=== PATIENT | male | born 1975 | race African-American/Black ===

== ENCOUNTER 2016-06-20 12:07 | Outpatient (CLI) | payer OTHER | END 2016-06-20 12:08 | disposition home or self-care (01) | DX: M47.816 Spondylosis without myelopathy or radiculopathy, lumbar region (principal); M47.812 Spondylosis without myelopathy or radiculopathy, cervical region; M50.31 Other cervical disc degeneration, high cervical region; M43.12 Spondylolisthesis, cervical region; M51.37 Other intervertebral disc degeneration, lumbosacral region; M43.17 Spondylolisthesis, lumbosacral region; M22.42 Chondromalacia patellae, left knee; M71.22 Synovial cyst of popliteal space [Baker], left knee ==

== ENCOUNTER 2016-06-20 12:13 | Outpatient (CLI) | payer OTHER | END 2016-06-20 12:14 | disposition home or self-care (01) | DX: M22.42 Chondromalacia patellae, left knee (principal); M71.22 Synovial cyst of popliteal space [Baker], left knee ==

== ENCOUNTER 2016-11-28 13:30 | Outpatient (CLI) | payer OTHER ==
[2016-11-28 19:14] LABS: ALBUMIN/GLOBULIN RATIO 1.2 (1.0-2.2); BILIRUBIN,TOTAL 0.7 mg/dL (0.2-1.0); BUN - BLOOD UREA NITROGEN 14 mg/dL (6-20); CALCIUM 10.2 mg/dL (8.5-10.3); CARBON DIOXIDE - CO2 27 mmol/L (21-32); CHLORIDE 103 mmol/L (101-111); GFR - MDRD 99 (>89); GLUCOSE 114 mg/dL (70-100); POTASSIUM 4.2 mmol/L (3.5-5.0); SODIUM 138 mmol/L (135-145); TOTAL PROTEIN 7.7 g/dL (6.7-8.2)
[2016-11-28 19:48] LABS: BASOPHILS % (AUTO) 0.7 %; EOSINOPHILS # (AUTO) 0.2 10^3/uL (0.0-0.7); EOSINOPHILS % (AUTO) 3.6 %; HCT - HEMATOCRIT 44.9 % (42.0-52.0); HGB - HEMOGLOBIN 14.7 g/dL (14.0-18.0); LYMPHOCYTES # (AUTO) 1.7 10^3/uL (1.5-3.5); MEAN CORPUSCULAR HEMOGLOBIN 29.6 pg (27.0-31.0); MEAN CORPUSCULAR HGB CONC 32.7 g/dL (32.0-36.0); MEAN CORPUSCULAR VOLUME 90.5 fL (80.0-94.0); MEAN PLATELET VOLUME 9.2 fL (7.4-11.4); MONOCYTES # (AUTO) 0.6 10^3/uL (0.0-1.0); MONOCYTES % (AUTO) 10.7 %; NEUTROPHILS # (AUTO) 3.2 10^3/uL (1.5-6.6); NUCLEATED RED BLOOD CELLS AUTO 0.2 /100WBC; RED BLOOD COUNT 4.96 10^6/uL (4.70-6.10); RED CELL DISTRIBUTION WIDTH 13.4 % (12.0-15.0); UNCORRECTED WHITE BLOOD COUNT 5.7 x10^3/uL; WHITE BLOOD COUNT 5.7 x10^3/uL (4.8-10.8)
== END 2016-11-28 13:31 | disposition home or self-care (01) ==
LOC: LAB.WCP 13:30
PROVIDERS: ATTEND Internal Medicine Rheumatology
DX: R53.83 Other fatigue (principal); M47.9 Spondylosis, unspecified; M54.9 Dorsalgia, unspecified
CPT/HCPCS: 36415; 80050; 85651

== ENCOUNTER 2017-05-16 08:00 | Outpatient (CLI) | payer OTHER ==
[2017-05-16 19:13] LABS: BASOPHILS % (AUTO) 0.7 %; EOSINOPHILS # (AUTO) 0.3 10^3/uL (0.0-0.7); EOSINOPHILS % (AUTO) 4.2 %; LYMPHOCYTES # (AUTO) 2.3 10^3/uL (1.5-3.5); MEAN CORPUSCULAR HEMOGLOBIN 30.5 pg (27.0-31.0); MEAN CORPUSCULAR HGB CONC 33.1 g/dL (32.0-36.0); MEAN CORPUSCULAR VOLUME 92.1 fL (80.0-94.0); MEAN PLATELET VOLUME 9.9 fL (7.4-11.4); MONOCYTES # (AUTO) 0.8 10^3/uL (0.0-1.0); MONOCYTES % (AUTO) 12.5 %; NEUTROPHILS # (AUTO) 3.2 10^3/uL (1.5-6.6); NEUTROPHILS % (AUTO) 48.6 %; PLT - PLATELET COUNT 211 10^3/uL (130-450); RED BLOOD COUNT 4.92 10^6/uL (4.70-6.10); RED CELL DISTRIBUTION WIDTH 13.4 % (12.0-15.0); WHITE BLOOD COUNT 6.7 x10^3/uL (4.8-10.8)
[2017-05-16 19:18] LABS: ALBUMIN 4.2 g/dL (3.2-5.5); ALBUMIN/GLOBULIN RATIO 1.4 (1.0-2.2); BILIRUBIN,TOTAL 0.4 mg/dL (0.2-1.0); CALCIUM 9.4 mg/dL (8.5-10.3); CREATININE 1.1 mg/dL (0.6-1.2); TOTAL PROTEIN 7.3 g/dL (6.7-8.2)
== END 2017-05-16 08:01 | disposition home or self-care (01) ==
LOC: LAB.WCP 08:00
PROVIDERS: ATTEND Internal Medicine Rheumatology
DX: M47.9 Spondylosis, unspecified (principal)
CPT/HCPCS: 36415; 80053; 85025; 85651

== ENCOUNTER 2017-12-11 13:50 | Outpatient (CLI) | payer OTHER ==
[2017-12-11 19:20] LABS: BASOPHILS # (AUTO) 0.1 10^3/uL (0.0-0.1); EOSINOPHILS # (AUTO) 0.2 10^3/uL (0.0-0.7); EOSINOPHILS % (AUTO) 3.4 %; HGB - HEMOGLOBIN 15.5 g/dL (14.0-18.0); LYMPHOCYTES # (AUTO) 1.9 10^3/uL (1.5-3.5); LYMPHOCYTES % (AUTO) 32.4 %; MEAN CORPUSCULAR HEMOGLOBIN 30.8 pg (27.0-31.0); MEAN CORPUSCULAR HGB CONC 33.3 g/dL (32.0-36.0); MEAN CORPUSCULAR VOLUME 92.5 fL (80.0-94.0); MEAN PLATELET VOLUME 9.2 fL (7.4-11.4); MONOCYTES # (AUTO) 0.7 10^3/uL (0.0-1.0); MONOCYTES % (AUTO) 12.1 %; NEUTROPHILS # (AUTO) 2.9 10^3/uL (1.5-6.6); NEUTROPHILS % (AUTO) 51.1 %; PLT - PLATELET COUNT 228 10^3/uL (130-450); RED BLOOD COUNT 5.04 10^6/uL (4.70-6.10); RED CELL DISTRIBUTION WIDTH 13.2 % (12.0-15.0); WHITE BLOOD COUNT 5.8 x10^3/uL (4.8-10.8)
[2017-12-11 19:36] LABS: ALBUMIN 4.4 g/dL (3.2-5.5); ALBUMIN/GLOBULIN RATIO 1.5 (1.0-2.2); BILIRUBIN,TOTAL 0.9 mg/dL (0.2-1.0); CALCIUM 9.9 mg/dL (8.5-10.3); CREATININE 1.1 mg/dL (0.6-1.2); TOTAL PROTEIN 7.4 g/dL (6.7-8.2)
== END 2017-12-11 13:51 | disposition home or self-care (01) ==
LOC: LAB.WCP 13:50
PROVIDERS: ATTEND Internal Medicine Rheumatology
DX: M79.7 Fibromyalgia (principal); M47.9 Spondylosis, unspecified
CPT/HCPCS: 36415; 80053; 85025; 85651

== ENCOUNTER 2018-01-22 15:10 | Outpatient (CLI) | payer OTHER ==
--- NOTE | 2018-01-22 15:50 | XRAY Report ---
Reason: SPONDYLOSIS, UNSPECIFIED Procedure Date: 01/22/2018 Accession Number: [id number] / [id number] Procedure: XR - Lumbar Spine 2 View CPT Code: FULL RESULT: EXAM: LUMBOSACRAL SPINE RADIOGRAPHY EXAM DATE: 01/22/2018 03:27 PM. CLINICAL HISTORY: SPONDYLOSIS, UNSPECIFIED. COMPARISONS: MRI 06/20/2016. TECHNIQUE: 2 views. FINDINGS: Alignment: Normal. No spondylolisthesis or scoliosis. Bones: Five [id number] lumbar vertebral bodies are present. No acute fracture line seen. Possible chronic left L5 pars interarticularis defect. Disks: Moderate disk height loss with disk osteophytes at L5-S1. Mild disk height loss at other lumbar levels. Facets: Moderate degenerative facet hypertrophy at L4-L5 and L5-S1. Mild facet hypertrophy at other lumbar levels. Sacroiliac Joints: Unremarkable. Soft Tissues: Generator for spinal nerve stimulator is seen in the posterior soft tissues with leads extending upwards into the thoracic spinal canal. IMPRESSION: 1. No evidence for acute fracture or dislocation. 2. Possible chronic left L5 pars interarticularis defect. CT could be obtained for further evaluation if indicated. This might be new compared to MRI from 06/20/2016. 3. Otherwise, Multilevel degenerative changes in the cervical spine as described above, largely unchanged compared to prior MRI. RADIA
--- NOTE | 2018-01-22 15:51 | XRAY Report ---
Reason: SPONDYLOSIS, UNSPECIFIED Procedure Date: 01/22/2018 Accession Number: [id number] / [id number] Procedure: XR - Pelvis 1 View CPT Code: FULL RESULT: EXAM: PELVIS RADIOGRAPHY EXAM DATE: 01/22/2018 03:27 PM. CLINICAL HISTORY: SPONDYLOSIS, UNSPECIFIED. COMPARISON: None. TECHNIQUE: 1 view. FINDINGS: Bones: Normal. No fracture or bone lesion. Joints: Hardware for bilateral hip arthroplasty with expected appearance and alignment, without evidence for new surrounding lucency or break. Degenerative changes at the pubic symphysis noted. Unremarkable appearance of the SI joints. Soft Tissues: Normal. No soft tissue swelling. IMPRESSION: 1. No evidence for acute fracture or dislocation of the pelvis. 2. Expected appearance and alignment of bilateral hip arthroplasty hardware. 3. 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 RADIA
== END 2018-01-22 15:11 | disposition home or self-care (01) ==
LOC: DI 15:10
PROVIDERS: ATTEND Internal Medicine Rheumatology
DX: M51.36 Other intervertebral disc degeneration, lumbar region (principal); M25.78 Osteophyte, vertebrae
CPT/HCPCS: 72100; 72170

== ENCOUNTER 2018-09-03 14:03 | Outpatient (CLI) | payer OTHER ==
[2018-09-03 18:55] LABS: BASOPHILS % (AUTO) 0.5 %; EOSINOPHILS # (AUTO) 0.1 10^3/uL (0.0-0.7); EOSINOPHILS % (AUTO) 1.9 %; LYMPHOCYTES # (AUTO) 2.3 10^3/uL (1.5-3.5); LYMPHOCYTES % (AUTO) 39.2 %; MEAN CORPUSCULAR HEMOGLOBIN 30.5 pg (27.0-31.0); MEAN CORPUSCULAR HGB CONC 32.9 g/dL (32.0-36.0); MEAN CORPUSCULAR VOLUME 92.8 fL (80.0-94.0); MEAN PLATELET VOLUME 8.9 fL (7.4-11.4); MONOCYTES # (AUTO) 0.7 10^3/uL (0.0-1.0); MONOCYTES % (AUTO) 11.8 %; NEUTROPHILS # (AUTO) 2.8 10^3/uL (1.5-6.6); NEUTROPHILS % (AUTO) 46.6 %; PLT - PLATELET COUNT 227 10^3/uL (130-450); RED BLOOD COUNT 4.93 10^6/uL (4.70-6.10)
[2018-09-03 18:58] LABS: ALT ALANINE AMINOTRANSFERASE 28 IU/L (10-60); AST ASPARTATE AMINOTRANSFERASE 23 IU/L (10-42)
== END 2018-09-03 14:04 | disposition home or self-care (01) ==
LOC: LAB.WCP 14:03
PROVIDERS: ATTEND Internal Medicine Rheumatology
DX: M47.9 Spondylosis, unspecified (principal)
CPT/HCPCS: 36415; 84450; 84460; 85025

== ENCOUNTER 2020-08-31 08:00 | Outpatient (CLI) | payer MEDICARE, OTHER ==
[2020-08-31 18:18] LABS: BASOPHILS # (AUTO) 0.1 10^3/uL (0.0-0.1); BASOPHILS % (AUTO) 0.9 %; EOSINOPHILS # (AUTO) 0.2 10^3/uL (0.0-0.7); EOSINOPHILS % (AUTO) 3.9 %; HCT - HEMATOCRIT 44.1 % (42.0-52.0); HGB - HEMOGLOBIN 13.6 g/dL (14.0-18.0); LYMPHOCYTES # (AUTO) 1.9 10^3/uL (1.5-3.5); LYMPHOCYTES % (AUTO) 32.7 %; MEAN CORPUSCULAR HEMOGLOBIN 30.6 pg (27.0-31.0); MEAN CORPUSCULAR HGB CONC 30.8 g/dL (32.0-36.0); MEAN CORPUSCULAR VOLUME 99.3 fL (80.0-94.0); MEAN PLATELET VOLUME 10.4 fL (7.4-11.4); MONOCYTES # (AUTO) 0.6 10^3/uL (0.0-1.0); MONOCYTES % (AUTO) 9.9 %; NEUTROPHILS % (AUTO) 52.4 %; PLT - PLATELET COUNT 250 10^3/uL (130-450); RED BLOOD COUNT 4.44 10^6/uL (4.70-6.10); WHITE BLOOD COUNT 5.7 x10^3/uL (4.8-10.8)
[2020-08-31 18:41] LABS: ALBUMIN 4.2 g/dL (3.2-5.5); ALBUMIN/GLOBULIN RATIO 1.4 (1.0-2.2); BILIRUBIN,TOTAL 0.5 mg/dL (0.2-1.0); CALCIUM 9.6 mg/dL (8.5-10.3); CREATININE 1.1 mg/dL (0.6-1.2); POTASSIUM 4.2 mmol/L (3.5-5.0); TOTAL PROTEIN 7.3 g/dL (6.7-8.2)
== END 2020-08-31 23:59 | disposition home or self-care (01) ==
LOC: LAB.WCP 08:00
PROVIDERS: ATTEND Internal Medicine Rheumatology
DX: M47.9 Spondylosis, unspecified (principal); M79.9 Soft tissue disorder, unspecified
CPT/HCPCS: 36415; 80053; 85025; 85651

== ENCOUNTER 2022-06-04 07:56 | Emergency (ER) | payer MEDICARE, OTHER ==
--- NOTE | 2022-06-04 08:23 | ED Physician Documentation ---
PD HPI CHEST PAIN - Stated complaint Stated Complaint: CHEST PX - History obtained from History obtained from: Patient - History of Present Illness Timing - onset: How many hours ago (1-2), Today Timing - onset during: Light activity (He got up from bed and felt somewhat general fatigue. He states he had poor sleep last night feeling short of breath which is unusual. He does sleep with a CPAP. He has not had any cough or cold symptoms. Onset while making breakfast of substernal and left chest pressure pain.) Timing - duration: Hours (1-2) Timing - details: Abrupt onset, Still present Quality: Pressure, Aching, Pain Recently seen: Not recently seen (he did have COVID mid March with some URI/cough and improved over 1-2 weeks, with just some fatigue residual.) Review of Systems Constitutional: denies: Fever, Chills Nose: denies: Rhinorrhea / runny nose, Congestion Throat: denies: Sore throat Respiratory: denies: Cough GI: denies: Abdominal Pain, Vomiting, Diarrhea, Bloody / black stool Skin: denies: Rash, Lesions Musculoskeletal: denies: Extremity swelling PD PAST MEDICAL HISTORY - Past Medical History Cardiovascular: Hypertension Respiratory: None Neuro: None Musculoskeletal: Chronic back pain (with spinal stimulator) - Allergies Allergies/Adverse Reactions: Allergies Allergy/AdvReac Type Severity Reaction Status Date / Time No Known Drug Allergies Allergy Verified 06/04/22 09:11 PD ED PE NORMAL - Vitals Vital signs reviewed: Yes - General General: Alert and oriented X 3, Well developed/nourished - HEENT HEENT: Pharynx benign - Neck Neck: Supple, no meningeal sign, No adenopathy - Cardiac Cardiac: RRR, No murmur - Respiratory Respiratory: No respiratory distress, Clear bilaterally, Other (no chestwall tenderness. ) - Abdomen Abdomen: Soft, Non tender - Back Back: No CVA TTP - Derm Derm: Normal color, Warm and dry - Extremities Extremities: No edema, No calf tenderness / cord Results - Vitals Vitals: Oxygen O2 Source Room air - EKG (time done) 08:05 Rate: Rate (enter#) (72) Rhythm: NSR, Other (baseline artifact from spinal stimulator. ) [place]: Normal Intervals: Normal ND QRS: Normal Ischemia: ST elevation c/w repol. No: ST elevation c/w ischemia, ST depression - Labs Labs: Laboratory Tests 06/04/22 06/04/22 06/04/22 08:15 08:15 08:15 WBC 5.1 RBC 4.45 L Hgb 13.8 L Hct 43.0 MCV 96.6 H MCH 31.0 MCHC 32.1 RDW 12.7 Plt Count 244 MPV 10.1 Neut # (Auto) 2.4 Lymph # (Auto) 2.0 Wayne # (Auto) 0.5 Eos # (Auto) 0.1 Baso # (Auto) 0.1 Absolute Nucleated RBC 0.00 Nucleated RBC % 0.0 ESR Sodium 139 Potassium 3.6 Chloride 103 Carbon Dioxide 26 Anion Gap 10.0 BUN 17 Creatinine 1.0 Estimated GFR (MDRD) 96 Glucose 95 Calcium 9.9 Total Bilirubin 0.6 AST 17 ALT 23 Alkaline Phosphatase 54 Troponin I High Sens 5.0 C-Reactive Protein < 1.0 B-Natriuretic Peptide Total Protein 7.3 Albumin 4.0 Globulin 3.3 Albumin/Globulin Ratio 1.2 Lipase 32 06/04/22 06/04/22 08:15 08:15 WBC RBC Hgb Hct MCV MCH MCHC RDW Plt Count MPV Neut # (Auto) Lymph # (Auto) Wayne # (Auto) Eos # (Auto) Baso # (Auto) Absolute Nucleated RBC Nucleated RBC % ESR 4 Sodium Potassium Chloride Carbon Dioxide Anion Gap BUN Creatinine Estimated GFR (MDRD) Glucose Calcium Total Bilirubin AST ALT Alkaline Phosphatase Troponin I High Sens C-Reactive Protein B-Natriuretic Peptide 10 Total Protein Albumin Globulin Albumin/Globulin Ratio Lipase - Rads (name of study) chest xray Radiology: Prelim report reviewed, EMP read indepedently (no acute process), See rad report PD Medical Decision Making - ED course Complexity details: reviewed results (normal ECG and CXR. Negative troponin, BNP and inflammatory markers. Normal ESR/CRP would speak against the idea of pericarditis. ), considered differential (could be musculoskeletal. History of back pain chronic. Want to ensure not ND/ACS, pulmonary cause, nor inflammatory, as his ECG showing likely early repol but could not exclude pericardial change. ), d/w patient Drug Therapy Requiring Monitoring for Toxicity: aspirin and NTG given with monitoring of BP and symptoms. Some improvement but not complete. Subsequently given IV Toradol and this did help better. Discomfort mostly gone. No pain with breathing nor movement. Departure - Departure Disposition: Home, Self Care Clinical Impression: Chest pain Condition: Stable Record reviewed to determine appropriate education?: Yes Instructions: ED Chest Pain NonCardiac Comments: No signs of a heart attack or heart failure. No pneumonia or collapsed lung etc. on x-ray. Unclear the cause of your pain. Consider musculoskeletal. Tylenol ibuprofen if needed for pains. You could also try some antacids periodically if it seems like it helps. At this point I would presume it to improve through the day. Recheck if continued symptoms or developing other new symptoms such as cough, fever, wheezing, etc. Discharge Date/Time: 06/04/22 11:00
[2022-06-04] MEDS ORDERED: ASPIRIN CHEW 81 MG TABLET PO STA (08:46)
[2022-06-04] MEDS ORDERED: NITROGLYCERIN SL 0.4 MG TABLET SL STA (08:46)
[2022-06-04 08:53] LABS: BASOPHILS # (AUTO) 0.1 10^3/uL (0.0-0.1); EOSINOPHILS # (AUTO) 0.1 10^3/uL (0.0-0.7); EOSINOPHILS % (AUTO) 2.5 %; HGB - HEMOGLOBIN 13.8 g/dL (14.0-18.0); LYMPHOCYTES % (AUTO) 39.3 %; MEAN CORPUSCULAR HGB CONC 32.1 g/dL (32.0-36.0); MEAN CORPUSCULAR VOLUME 96.6 fL (80.0-94.0); MEAN PLATELET VOLUME 10.1 fL (7.4-11.4); MONOCYTES # (AUTO) 0.5 10^3/uL (0.0-1.0); MONOCYTES % (AUTO) 10.2 %; NEUTROPHILS # (AUTO) 2.4 10^3/uL (1.5-6.6); NEUTROPHILS % (AUTO) 46.8 %; PLT - PLATELET COUNT 244 10^3/uL (130-450); RED BLOOD COUNT 4.45 10^6/uL (4.70-6.10); RED CELL DISTRIBUTION WIDTH 12.7 % (12.0-15.0); WHITE BLOOD COUNT 5.1 x10^3/uL (4.8-10.8)
--- NOTE | 2022-06-04 09:07 | XRAY Report ---
PROCEDURE: Chest 1 View X-Ray INDICATIONS: Chest Pain TECHNIQUE: One view of the chest was acquired. COMPARISON: None. FINDINGS: Surgical changes and devices: Neurostimulator device projects over the left abdomen with electrodes extending to the level of the mid thoracic spine. Lungs and pleura: No pleural effusions or pneumothorax. Lungs are clear. Mediastinum: Mediastinal contours appear normal. Heart size is normal. Bones and chest wall: No suspicious bony lesions. Overlying soft tissues appear unremarkable. IMPRESSION: Chest without acute cardiopulmonary abnormalities or focal airspace disease. Reviewed by: Chele Fink MD on 06/04/2022 9:05 AM [facility] Approved by: Chele Fink MD on 06/04/2022 9:05 AM [facility] Station ID: [id number]
[2022-06-04 09:15] LABS: ALBUMIN/GLOBULIN RATIO 1.2 (1.0-2.2); ALKALINE PHOSPHATASE 54 IU/L (42-121); ALT ALANINE AMINOTRANSFERASE 23 IU/L (10-60); AST ASPARTATE AMINOTRANSFERASE 17 IU/L (10-42); BILIRUBIN,TOTAL 0.6 mg/dL (0.2-1.0); BUN - BLOOD UREA NITROGEN 17 mg/dL (6-20); CALCIUM 9.9 mg/dL (8.5-10.3); CARBON DIOXIDE - CO2 26 mmol/L (21-32); CHLORIDE 103 mmol/L (101-111); GFR - MDRD 96 (>89); GLUCOSE 95 mg/dL (70-100); LIPASE 32 U/L (22-51); POTASSIUM 3.6 mmol/L (3.5-5.0); SODIUM 139 mmol/L (135-145); TOTAL PROTEIN 7.3 g/dL (6.7-8.2)
[2022-06-04 09:16] LABS: CRP - C-REACTIVE PROTEIN < 1.0 mg/dL (0-1.0)
[2022-06-04] MEDS ORDERED: MAG HYDROX/AL HYDROX/SIMETH 30 ML UDC PO STA (10:18)
[2022-06-04] MEDS ORDERED: KETOROLAC 15 MG/ML VIAL IVP STA (10:18)
[2022-06-04 10:53] VITALS: BP 119/94
== END 2022-06-04 11:00 | disposition home or self-care (01) ==
LOC: ED 07:56
DX: R07.9 Chest pain, unspecified (principal); I10 Essential (primary) hypertension
CPT/HCPCS: 36415; 71045; 80053; 83690; 83880; 84484; 85025; 85651; 86140; 93005; 96374; 99284; A9270